=== PATIENT | male | born 1970 | race Caucasian/White ===

== ENCOUNTER → 2017-01-27 | Outpatient (CLI) | payer OTHER ==
--- NOTE | 2017-01-27 18:22 | REP ---
Right shoulder three views : There is no fracture or dislocation. Mineralization and joint spaces are normal. There are no calcifications or foreign bodies. Impression: Negative right shoulder . Signed by Marcellus Gan MD 01/27/2017 06:14 P
== END ==
LOC: M WUC 18:01
PROVIDERS: ATTEND Physician Assistant
DX: M25.511 Pain in right shoulder (principal)